=== PATIENT | male | born 1995 | race African-American/Black ===

== ENCOUNTER 2018-10-06 11:14 | Emergency (ER) | payer BC, OTHER ==
[~2018-10-06] VITALS: Ht 177.8 cm; Wt 84.5 kg
[2018-10-06 11:23] VITALS: BP 131/70
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
== END 2018-10-06 13:15 | disposition home or self-care (01) ==
LOC: ED 13:06
DX: S06.0X0A Concussion without loss of consciousness, initial encounter (principal); S00.03XA Contusion of scalp, initial encounter; S00.33XA Contusion of nose, initial encounter; W20.8XXA Other cause of strike by thrown, projected or falling object, initial encounter; Y93.89 Activity, other specified; Y92.89 Other specified places as the place of occurrence of the external cause; Y99.8 Other external cause status
CPT/HCPCS: 70450; 99284